=== PATIENT | female | born 1990 | race Caucasian/White ===

== ENCOUNTER 2022-08-11 11:37 | Emergency (ER) | payer OTHER ==
[2022-08-11 12:27] VITALS: PULSE 92
[2022-08-11] MEDS ORDERED: LIDOCAINE 1%-EPI 1:100,000 20 ML VIAL SQ STA (12:34)
--- NOTE | 2022-08-11 12:49 | ED ---
General Adult HPI - General Chief complaint: Skin/Abscess/Foreign Body Stated complaint: Abscess on stomach,5wks preg Time Seen by Provider: 08/11/22 12:34 Source: patient Mode of arrival: ambulatory Limitations: no limitations - History of Present Illness Initial comments: Dictation was produced using [employer] dictation software. please excuse any g rammatical, word or spelling errors. Chief Complaint: 32-year-old female presents emergency for abdominal wall abscess History of Present Illness: 32-year-old female presents to the emergency department for abdominal wall abscess. Patient states that earlier this week she went to her primary care doctor. She was prescribed antibiotics for a presumed localized abscess to her lower anterior abdomen. States that since being on the antibiotics her symptoms have not improved and that her skin became a little bit more erythematous. States that is not improving. Patient denies any fever, chills or night sweats. She is allegedly 5 weeks . The ROS documented in this emergency department record has been reviewed and confirmed by me. Those systems with pertinent positive or negative responses have been documented in the HPI. All other systems are other negative and/or noncontributory. PHYSICAL EXAM: General Impression: Alert and oriented x3, not in acute distress HEENT: Normocephalic atraumatic, extra-ocular movements intact, pupils equal and reactive to light bilaterally, mucous membranes moist. Cardiovascular: Heart regular rate and rhythm Chest: Able to complete full sentences, no retractions, no tachypnea Abdomen: abdomen soft, non-tender, non-distended, no organomegaly, erythematous area to the lower abdomen slightly off to the left, point of care bedside ultrasound shows very small area of fluid collection. Musculoskeletal: Pulses present and equal in all extremities, no peripheral edema Motor: no focal deficits noted Neurological: CN II-XII grossly intact, no focal motor or sensory deficits noted Skin: Intact with no visualized rashes Psych: Normal affect and mood ED course: 32 yo Female presents emergency department for anterior abdominal soft tissue abscess. She is allegedly 5 weeks . needle aspiration performed at bedside. There was approximate 0.5 mL of purulent fluid removed. There is concern for MRSA infection. Patient prescription for clindamycin. - Related Data Previous Rx's Medication Instructions Recorded clindamycin HCL 300 mg PO Q8H #15 capsule 08/11/22 Allergies Allergy/AdvReac Type Severity Reaction Status Date / Time No Known Allergies Allergy Verified 08/11/22 12:26 Review of Systems ROS Statement: Those systems with pertinent positive or pertinent negative responses have been documented in the HPI. ROS Other: All systems not noted in ROS Statement are negative. Past Medical History Past Medical History: No Reported History History of Any Multi-Drug Resistant Organisms: None Reported Past Surgical History: Joint Replacement, Orthopedic Surgery Past Psychological History: No Psychological Hx Reported Smoking Status: Never smoker Past Alcohol Use History: None Reported Past Drug Use History: None Reported General Exam Limitations: no limitations Course Vital Signs 08/11/22 12:25 Temperature 97.6 F Pulse Rate 92 Respiratory 20 Rate Blood Pressure 128/72 O2 Sat by Pulse 99 Oximetry Procedures - Incision & Drainage Consent Obtained: verbal consent Site: other (abdomen) Anesthetic Used: lidocaine 1%, with epi Sterile Field Used?: No Needle Aspiration Performed?: Yes (0.5cc) I&D Drainage Obtained: Pus, Blood Culture Obtained?: Yes Patient Tolerated Procedure: well Disposition Clinical Impression: Abscess Disposition: HOME SELF-CARE Condition: Fair Instructions (If sedation given, give patient instructions): Abscess Incision and Drainage (ED), Abscess (ED) Prescriptions: clindamycin HCL 300 mg PO Q8H #15 capsule Is patient prescribed a controlled substance at d/c from ED?: No Referrals: Jamaica Cooney MD [Primary Care Provider] - 1-2 days Time of Disposition: 13:18
[2022-08-11 13:53] VITALS: BP 128/83; RESP 18; TEMP 98.3
== END 2022-08-11 13:47 | disposition home or self-care (01) ==
LOC: EC 11:37
DX: O99.711 Diseases of the skin and subcutaneous tissue complicating pregnancy, first trimester (principal); L02.211 Cutaneous abscess of abdominal wall; Z3A.01 Less than 8 weeks gestation of pregnancy
CPT/HCPCS: 10060; 87070; 87077; 87186; 87205; 99282

== ENCOUNTER 2023-04-06 09:59 | Inpatient (IN) | payer BC, OTHER ==
[2023-04-05 14:03] VITALS: BMI 34.7
--- NOTE | 2023-04-06 10:03 | P.PCN ---
Date of Procedure: 04/06/23 Preoperative Diagnosis: handy man dental caries, fearful anxiety due to age, non restorable incisor teeth Postoperative Diagnosis: Same Procedure(s) Performed: Dental restorations, pulp therapy, composite crowns, extraction of teeth #s D and E Anesthesia: ROSARIO Surgeon: Alber Back Estimated Blood Loss (ml): 2 Pathology: none sent Condition: stable Disposition: same day Indications for Procedure: handy man dental caries; occasional pain from upper front teeth, fearful anxiety due to age Operative Findings: Same Description of Procedure: The following procedures were performed: Throat pack placed 8:26 1. Tooth # F - Composite crown and Indirect pulp cap 2. Tooth # G - Composite crown and Indirect pulp cap 3. Tooth # I - Dental composite 4. Tooth # J - Dental composite and Vital pulpotomy 5. Tooth # K - Dental composite 6. Tooth # L - Dental composite Throat pack out 9:01 Oral Tube shifted Throat pack in 9:04 7. Tooth # A - Dental composite 8. Tooth # S - Dental composite 9. Tooth # T - Dental composite 1.0 ml 2% Lidocaine with epinephrine 1 to 100,000 10. Tooth # D - Surgical extraction 11. Tooth # E - Surgical extraction Throat pack out 9:23 Blood loss 2ml Post Op Instructions to parents
[2023-04-06] MEDS ORDERED: OXYTOCIN 30 UNITS/500 ML NS 30 UNIT in SALINE 1 500ML.BAG IV SCH ×2 (10:15→13:15)
[2023-04-06] MEDS ORDERED: TRANEXAMIC ACID IN NACL,ISO-OS 1,000 MG in EMPTY BAG 1 BAG IV PRN (10:15)
[2023-04-06] MEDS ORDERED: METHYLERGONOVINE 0.2 MG/ML 1 ML AMP IM PRN (10:15)
[2023-04-06] MEDS ORDERED: LACTATED RINGERS 1,000 ML IV ONE (10:15)
[2023-04-06] MEDS ORDERED: miSOPROStoL 200 MCG TAB PO PRN (10:15)
[2023-04-06] MEDS ORDERED: CARBOPROST TROMETHAMINE 250 MCG/ML 1 ML AMP IM PRN (10:15)
[2023-04-06] MEDS ORDERED: CITRIC ACID-SODIUM CITRATE 15 ML CUP PO ONE (10:15)
[2023-04-06] MEDS ORDERED: OXYTOCIN 10 UNIT/ML 1 ML VIAL IM PRN (10:15)
[2023-04-06 10:55] LABS: Basophils % (A) 0 %; Eosinophils # (A) 0.2 k/uL (0-0.7); Eosinophils % (A) 2 %; HCT 37.2 % (34.0-46.0); HGB 12.5 gm/dL (11.4-16.0); Lymphocytes # (A) 1.5 k/uL (1.0-4.8); Lymphocytes % (A) 16 %; MCH 30.8 pg (25.0-35.0); MCHC 33.5 g/dL (31.0-37.0); Mean Platelet Volume 8.1; Monocytes # (A) 0.6 k/uL (0-1.0); Monocytes % (A) 6 %; Neutrophils # (A) 6.9 k/uL (1.3-7.7); Neutrophils % (A) 73 %; Platelet Count 254 k/uL (150-450); RBC 4.05 m/uL (3.80-5.40); RDW 14.1 % (11.5-15.5); WBC 9.4 k/uL (3.8-10.6)
[2023-04-06] MEDS ORDERED: MORPHINE SULFATE (PF) 0.3 MG/0.3 ML SYR ONE (12:07)
[2023-04-06] MEDS ORDERED: NALBUPHINE 10 MG/ML (10 ML MDV) ONE (12:07)
[2023-04-06] MEDS ORDERED: KETOROLAC 15 MG/ML 1 ML VIAL ONE (12:07)
[2023-04-06] MEDS ORDERED: PHENYLEPHRINE-0.9% NACL SYG 1,000 MCG/10 ML SYRINGE ONE (12:07)
[2023-04-06] MEDS ORDERED: ONDANSETRON 4 MG/2 ML VIAL ONE (12:07)
[2023-04-06] MEDS ORDERED: OXYTOCIN 30 UNITS/500 ML NS BAG IV ONE (12:07)
[2023-04-06] MEDS ORDERED: diphenhydrAMINE 50 MG/ML 1 ML VIAL IVP PRN ×3 (12:44→13:09)
[2023-04-06] MEDS ORDERED: NALBUPHINE 10 MG/ML (10 ML MDV) IV PRN (12:44)
[2023-04-06] MEDS ORDERED: ONDANSETRON 4 MG/2 ML VIAL IVP PRN ×2 (12:44→13:09)
[2023-04-06] MEDS ORDERED: NALOXONE 0.4 MG/ML 1 ML VIAL IV PRN (12:44)
[2023-04-06] MEDS ORDERED: HYDROmorphone 0.5 MG/0.5 ML SYRINGE IVP PRN (12:44)
[2023-04-06] MEDS ORDERED: SIMETHICONE 80 MG CHEWABLE PO PRN (13:09)
[2023-04-06] MEDS ORDERED: diphenhydrAMINE 50 MG CAP PO PRN (13:09)
[2023-04-06] MEDS ORDERED: ZOLPIDEM 5 MG TAB PO PRN (13:09)
[2023-04-06] MEDS ORDERED: diphenhydrAMINE 25 MG CAP PO PRN (13:09)
[2023-04-06] MEDS ORDERED: METOCLOPRAMIDE 5 MG/ML 2 ML VIAL IVP PRN (13:09)
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
--- NOTE | 2023-04-06 13:21 | P.OP ---
Date of Procedure: 04/06/23 Preoperative Diagnosis: #1. 39-0/7 weeks, history of pelvic fracture Postoperative Diagnosis: Same Procedure(s) Performed: #1. Primary low-transverse section Anesthesia: spinal Surgeon: Ubaldo Reyes Scowman #1: Mary Schultz Estimated Blood Loss (ml): 700 IV fluids (ml): 1,300 Urine output (ml): 300 Pathology: none sent Condition: stable Disposition: floor Operative Findings: The patient was taken the operating room where she was delivered of a viable 8 lbs. 12 oz. baby boy with Apgars of 9 at 1 minute and 9 at 5 minutes. The placenta was delivered manually, intact, and grossly normal to grossly normal three-vessel cord. The uterus, tubes, and ovaries were entirely normal to inspection. Description of Procedure: The patient was prepped and draped in usual fashion after spinal anesthesia was administered by the anesthesiologist. A Pfannenstiel incision was made and extended into the abdominal cavity without difficulty. The bladder peritoneum was significant a distal to the intended site of incision was left intact. A 2 cm incision was made in the transverse plane of the lower uterine segment to enter the uterus at which time clear fluid was noted. The incision was extended in both directions using the bandage scissors. The head was delivered up and through the incision where the nose and mouth were thoroughly suctioned. The remainder of the was delivered onto the field where the cord was doubly clamped, cut, and the infant passed resuscitative measures with weight and Apgars as noted above. cord blood was collected for evaluation for the necessity of RhoGAM. A segment of cord was doubly clamped, cut, and set aside should cord gases become necessary. The placenta was delivered manually and intact as noted above. The uterus was exteriorized and the interior cavity of uterus swept of any remaining placental or membranous fragments. The margins of the uterine incision were grasped with Cam clamps and the incision closed in 2 layers. The first layer was a running locking stitch of 0 chromic catgut followed by a running imbricating layer of 0 chromic catgut from, each from margin to margin. Hemostasis appeared to be excellent. The posterior cul-de-sac was suctioned with a guard followed by laparotomy sponge. The uterine and ovarian findings were normal as noted above. The uterus was rep laced within the abdominal cavity and the gutters swept of any remaining blood, fluid, or clot. Reexamination of the uterine incision demonstrated excellent hemostasis. The parietal peritoneum was loosely reapproximated in the layer of muscles examined and made hemostatic with the Bovie. The fascia was closed with a single running stitch of 0 Vicryl proceeding from margin to margin. The subcutaneous tissues were irrigated, made hemostatic with the Bovie, and reapproximated with a running stitch of 3-0 plain catgut. The skin was reapproximated with a running subcuticular stitch of 4-0 Vicryl followed by half-inch Steri-Strips placed with Mastisol. Estimated blood loss for the case was approximately 700 mL. There were no complications. All sponge, instrument, needle counts were correct. The patient tolerated the procedure well and proceeded to the recovery room in stable condition. Both mother and are resting comfortably in recovery.
[2023-04-06] MEDS: ACETAMINOPHEN TAB 500 MG TAB PO SCH (16:46)
[2023-04-06] MEDS: LACTATED RINGERS 1,000 ML IV SCH (17:35)
[2023-04-06] MEDS: IBUPROFEN 600 MG TAB PO SCH (19:48)
[2023-04-06] MEDS ORDERED: Rhogam IMMUNE GLOBULIN 1,500 UNIT/1 ML IM ONE (21:07)
[2023-04-06] MEDS: SENNOSIDES-DOCUSATE SODIUM 1 EACH TAB PO SCH (21:09)
[2023-04-06] MEDS: KETOROLAC 15 MG/ML 1 ML VIAL IVP PRN (21:09)
[2023-04-07] MEDS: LACTATED RINGERS 1,000 ML IV SCH (00:28)
[2023-04-07] MEDS: ACETAMINOPHEN TAB 500 MG TAB PO SCH ×5 (00:28→23:41)
[2023-04-07] MEDS: KETOROLAC 15 MG/ML 1 ML VIAL IVP PRN (02:43)
[2023-04-07] MEDS: IBUPROFEN 600 MG TAB PO SCH ×5 (02:52→19:53)
[2023-04-07 06:33] LABS: Basophils % (A) 0 %; Eosinophils # (A) 0.1 k/uL (0-0.7); Eosinophils % (A) 1 %; HGB 10.5 gm/dL (11.4-16.0); Lymphocytes # (A) 1.7 k/uL (1.0-4.8); Lymphocytes % (A) 12 %; MCHC 32.7 g/dL (31.0-37.0); MCV 91.7 fL (80.0-100.0); Monocytes # (A) 0.6 k/uL (0-1.0); Monocytes % (A) 4 %; Neutrophils # (A) 11.4 k/uL (1.3-7.7); Neutrophils % (A) 81 %; Platelet Count 176 k/uL (150-450); RBC 3.49 m/uL (3.80-5.40); RDW 14.7 % (11.5-15.5)
[2023-04-07] MEDS: SENNOSIDES-DOCUSATE SODIUM 1 EACH TAB PO SCH ×2 (07:42→19:53)
--- NOTE | 2023-04-07 08:24 | P.PN ---
Progress Note - Text Progress Note Date: 04/07/23 (0608) Anesthesia Postop day 1 Subjective: Status Post section with Duramorph. Patient seen and examined. Doing well without complaint. VAS 2 out of 10. Some nausea and vomiting yesterday. Now resolved. Mild pruritus throughout night. Afebrile. Gross lower extremity strength intact. Without apparent anesthetic complications. Objective: Vital signs reviewed Heart: Regular Rate Lungs: Good chest excursion Abdomen: Appears nondistended Assessment: Status post with Duramorph postop day 1 Plan: Continue current care with your medical management. Anticipated and the Duramorph section around time today. You may see increased pain needs around this time.
--- NOTE | 2023-04-07 11:43 | P.PNOBGPC ---
Subjective - Subjective Patient reports: Reports appetite normal, Reports voiding normally, Reports pain well controlled, Reports ambulating normally : doing well Objective - Vital Signs Latest vital signs: Vital Signs Temp Pulse Resp BP Pulse Ox 04/07/23 07:52 98.2 F 102 H 16 119/78 97 04/07/23 04:00 98.0 F 75 18 120/71 04/07/23 00:00 97.9 F 78 18 133/69 04/06/23 20:00 98.1 F 86 18 132/79 04/06/23 19:00 18 100 04/06/23 15:05 97.5 F L 95 16 112/66 99 04/06/23 14:35 91 16 123/68 04/06/23 14:05 93 16 146/69 99 04/06/23 13:50 95 16 145/68 99 04/06/23 13:35 95 16 154/65 98 04/06/23 13:20 93 16 122/51 98 04/06/23 13:05 97.4 F L 94 16 114/70 99 Intake and Output 04/06/23 04/07/23 04/07/23 22:59 06:59 14:59 Intake Total 100 Output Total 150 600 Balance -50 -600 Intake: IV 100 Output: Urine 600 Output, Quantitative 150 Blood Loss - Exam Extremities: Present: normal Abdomen: Present: normal appearance, soft. Absent: distention, tenderness Incision: Present: normal, dry, intact Uterus: Present: normal, firm (The uterine fundus as tonic and minimally tender below the umbilicus.) - Labs Labs: Abnormal Lab Results - Last 24 Hours (Table) 04/07/23 Range/Units 05:55 WBC 14.0 H (3.8-10.6) k/uL RBC 3.49 L (3.80-5.40) m/uL Hgb 10.5 L (11.4-16.0) gm/dL Hct 32.0 L (34.0-46.0) % Neutrophils # 11.4 H (1.3-7.7) k/uL Assessment and Plan (1) History of pelvic fracture Current Visit: Yes Status: Acute Code(s): Z87.81 - PERSONAL HISTORY OF (HEALED) TRAUMATIC FRACTURE SNOMED Code(s): 035244988 (2) Term Current Visit: Yes Status: Acute Code(s): Z34.90 - ENCNTR FOR SUPRVSN OF NORMAL , UNSP, UNSP TRIMESTER SNOMED Code(s): 47550061 (3) S/P section Current Visit: Yes Status: Acute Code(s): Z98.891 - HISTORY OF UTERINE SCAR FROM PREVIOUS SURGERY SNOMED Code(s): 885493521 Plan: Continue routine and postoperative care. I have encouraged patient ambulate in the hallways routinely. I would anticipate discharge home tomorrow pending no complications.
[2023-04-08 00:24] VITALS: PULSE 99
[2023-04-08] MEDS: IBUPROFEN 600 MG TAB PO SCH ×2 (01:46→08:31)
[2023-04-08] MEDS: ACETAMINOPHEN TAB 500 MG TAB PO SCH (04:56)
--- NOTE | 2023-04-08 08:13 | P.DS ---
Providers Date of admission: 04/06/23 09:59 Expected date of discharge: 04/08/23 Attending physician: Ubaldo Reyes Primary care physician: Stated None - Discharge Diagnosis(es) (1) History of pelvic fracture Current Visit: Yes Status: Acute (2) Rh negative status during Current Visit: Yes Status: Acute (3) S/P section Current Visit: Yes Status: Acute (4) Term Current Visit: Yes Status: Acute Hospital Course: This is a 32-year-old 2 now para 1011 woman who is admitted for scheduled primary low transverse section at term secondary to history of pelvic fracture. She was admitted on 04/06/2023 and went to the operating room where she underwent an unremarkable primary low transverse sectio n. Findings at the time of surgery were remarkable for a liveborn male weighing 8 lbs. 12 oz. with Apgars of 9 at 1 minute and 9 at 5 minutes. Please see the delivery summary for complete details. Her postoperative course was entirely unremarkable. By postoperative day #1 she was ambulating and voiding without difficulty. Her postoperative laboratory data was within normal limits. Her vital signs were stable and her pain was well-controlled. By postoperative day #2 she continued to do very well with minimal lochia and adequate oral medication use for pain control. Her incision was well healing. She was therefore discharged home with routine instructions for care and follow-up. Procedures: Primary low transverse section Patient Condition at Discharge: Good Plan - Discharge Summary Discharge Rx Participant: Yes New Discharge Prescriptions: New Acetaminophen-Codeine 300-30mg [Tylenol w/codeine #3] 1 tab PO Q4H PRN 3 Days #18 tablet PRN Reason: Pain No Action Aspirin EC [Ecotrin Low Dose] 81 mg PO DAILY Loratadine 10 mg PO DAILY Ferrous Sulfate [Feosol] 325 mg PO Q2D Docusate [Colace] 100 mg PO DAILY Vit No.179/Iron/Folic [ Tablet] 1 each PO DAILY Discharge Medication List Aspirin EC [Ecotrin Low Dose] 81 mg PO DAILY 04/05/23 [History] Docusate [Colace] 100 mg PO DAILY 04/05/23 [History] Ferrous Sulfate [Feosol] 325 mg PO Q2D 04/05/23 [History] Loratadine 10 mg PO DAILY 04/05/23 [History] Vit No.179/Iron/Folic [ Tablet] 1 each PO DAILY 04/05/23 [History] Acetaminophen-Codeine 300-30mg [Tylenol w/codeine #3] 1 tab PO Q4H PRN 3 Days #18 tablet 04/08/23 [Rx] Follow up Appointment(s)/Referral(s): Ubaldo Reyes MD [STAFF PHYSICIAN] - 2 Weeks Activity/Diet/Wound Care/Special Instructions: Follow-up in 2 weeks after surgery in the office. Call the office with any concerning signs or symptoms including fever greater than 101, severe abdominal pain, heavy vaginal bleeding, signs of wound infection, increased swelling or redness of the lower extremities, signs of depression. No driving for 2 weeks after surgery. No heavy lifting or vigorous activity until reevaluated in the office. No intercourse for 6 weeks after delivery. Discharge Disposition: HOME SELF-CARE
[2023-04-08] MEDS: SENNOSIDES-DOCUSATE SODIUM 1 EACH TAB PO SCH (08:31)
[2023-04-08 08:40] VITALS: BP 125/82; RESP 16; TEMP 98.1
== END 2023-04-08 10:23 | disposition home or self-care (01) | DRG 788 ==
LOC: 4FBP 09:59
PROVIDERS: ADMIT Obstetrics & Gynecology; ATTEND Obstetrics & Gynecology
PROC: 10D00Z1 Extraction of Products of Conception, Low, Open Approach (ICD-10-PCS; principal; 2023-04-06 12:00)
DX: O26.893 Other specified pregnancy related conditions, third trimester (principal); Z37.0 Single live birth; Z67.91 Unspecified blood type, Rh negative; L29.9 Pruritus, unspecified; O99.73 Diseases of the skin and subcutaneous tissue complicating the puerperium; Z87.891 Personal history of nicotine dependence; Z79.82 Long term (current) use of aspirin; Z3A.39 39 weeks gestation of pregnancy; Z86.14 Personal history of Methicillin resistant Staphylococcus aureus infection
CPT/HCPCS: 85025; 85461; 86850; 86900; 86901